=== PATIENT | male | born 1945 | race Caucasian/White ===

== ENCOUNTER 2018-10-18 11:36 | Outpatient (CLI) | payer MEDICARE, BC ==
[2018-10-18] VITALS (21 sets, daily range): BP systolic 107–138; BP diastolic 71–97
== END 2018-10-18 23:59 | disposition home or self-care (01) ==
LOC: CARD DIAG 11:36
PROVIDERS: ATTEND Internal Medicine Cardiovascular Disease
DX: R00.0 Tachycardia, unspecified (principal); R42 Dizziness and giddiness; Z87.891 Personal history of nicotine dependence
CPT/HCPCS: 93660